=== PATIENT | female | born 1945 | race Caucasian/White ===

== ENCOUNTER 2016-07-21 22:38 | Emergency (ER) | payer MEDICARE, OTHER ==
[~2016-07-21] VITALS: Ht 172.7 cm; Wt 70.0 kg
[2016-07-21 22:44] VITALS: BP 148/96; PULSE 110; RESP 28; O2SAT 98
--- NOTE | 2016-07-21 23:26 | ED.REPORT ---
HPI-General Illness Date of Service Jul 21, 2016 ED Provider: Lino Byrd MD Patient is a 71 year old female with a history of asthma and recent diagnosis of pneumonia who presents to the ED complaining of cough and shortness of breath for the past 12 days, increasing in severity tonight. Patient states that she was seen at [facility] after onset of symptoms and was diagnosed with pneumonia. She was started on Azithromycin for 5x days and Prednisone. However the patient's symptoms did not resolve and she presented to the [facility] again today. She was given another course of Prednisone and started on Amoxicillin, Guaifenesin, and Flovent. The patient reports being anxious and jittery due to the Prednisone. She reports waking from sleep panicking and she is unable to sleep well. The patient also has albuterol at home, but was told not to use this medication while treated for pneumonia. Patient denies fever, chest pain, or swelling in her legs. Nursing Notes Stated Complaint: SHORTNESS OF BREATH Chief Complaint: Respiratory Distress Nursing Notes Reviewed: Yes Allergies: Uncoded Allergies: SEASONAL (Allergy, Mild, 07/21/16) Scheduled PRN Lorazepam (Lorazepam) 0.5 Mg Tablet 0.5 MG PO HS PRN PRN For Insomnia General Time Seen by MD: 23:25 Chief Complaint Breathing problem, Cough Hx Obtained From: Patient Arrived By: Walk-in Sudden in Onset?: No Onset Occurred: More than a week ago... 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 Physical Exam Vital Signs Vital Signs Date Time Temp Pulse Resp B/P Pulse Ox O2 Delivery O2 Flow Rate FiO2 07/22/16 02:26 110 16 122/70 100 Room Air 1/18/17 00:10 94 20 147/78 98 Room Air 07/22/16 00:05 92 16 94 Room Air 07/21/16 22:44 35.8 110 28 148/96 98 Room Air Initial VS: Reviewed Skin: Warm, Dry, No cyanosis Neurologic: Alert, Oriented, Nonfocal General/Constitutional: Awake, Alert Behavior: Positive: Anxious (nearly tremulous with anxiety) Head / Eyes: Atraumatic, Normocephalic, PERRL ENT: Airway patent, Mucous membranes moist Neck: Supple, Full range of motion Respiratory / Chest: No respiratory distress, No rales, No rhonchi Wheezing / Retractions: Positive: Wheeze insp/exp diffuse Cardiovascular: Regular rhythm, No murmurs Heart Rate / Rhythm: Positive: Tachycardia Abdomen: Soft, Non-tender, No guarding, No rebound Upper Extremities Upper Extremity / MS: No swelling, No edema Lower Extremity / Pelvis / MS: No swelling, No edema Psychiatric: Cognitive function NL Abnormal Mood/Affect: Positive: Anxious Interpretation & Diagnostics Interpretation & Diagnostics: NEGATIVE FOR INFLUENZA TYPE A AND B Lab Results Interpretation Result Diagram: 07/21/16 2345 07/21/16 2345 Test 07/21/16 23:45 White Blood Count 7.2th/mm3 (3.8-10.1) Red Blood Count 4.91mil/mm3 (3.90-5.20) Hemoglobin 13.2g/dL (12.0-15.6) Hematocrit 37.0% (35.0-46.0) Mean Corpuscular Volume 75.4fL (81-100) Mean Corpuscular Hemoglobin 26.9pg (27.0-35.0) Mean Corpuscular Hemoglobin Concent 35.7% (32.0-37.0) Red Cell Distribution Width 13.4% (12.3-15.4) Platelet Count 490bil/L (150-400) Neutrophils (%) (Auto) 81.0% (40-74) Lymphocytes (%) (Auto) 17.1% (14-46) Monocytes (%) (Auto) 1.5% (4-12) Eosinophils (%) (Auto) 0% (0-5) Basophils (%) (Auto) 0.1% (0-3) Prothrombin Time 10.6sec (8.1-12.5) Prothromb Time International Ratio 0.99ratio Activated Partial Thromboplast Time 29.8sec (22.8-33.0) Sodium Level 126mEq/L (134-144) Potassium Level 4.2mEq/L (3.5-5.2) Chloride Level 91mEq/L (97-108) Carbon Dioxide Level 17mmol/L (18-29) Blood Urea Nitrogen 12mg/dL (8-27) Creatinine 0.66mg/dL (0.57-1.00) Estimat Glomerular Filtration Rate 127mL/min (>59) Glucose Level 171mg/dL (60-99) Calcium Level 9.8mg/dL (8.5-10.1) Magnesium Level 2.0mg/dL (1.6-2.6) Total Bilirubin 0.3mg/dL (0.0-1.2) Aspartate Amino Transf (AST/SGOT) 19U/L (0-50) Alanine Aminotransferase (ALT/SGPT) 16U/L (0-32) Alkaline Phosphatase 105U/L (25-165) Troponin T 0.010ug/L (0.0-0.011) Pro-B-Type Natriuretic Peptide 111.0pg/mL (0-301) Total Protein 8.2g/dL (6.4-8.4) Albumin 4.1g/dL (3.4-5.0) Hold Arredondo Top Tube Received (Received) ECG Interpretation ECG Interpretation: Sinus tachycardia, Rate 113 RBBB and LAFB Time: 00:49 Interpreted by: ED physician Re-Eval/Medical Decision Med Decision/Clinical Course 71-year-old female with asthma by history, recent respiratory infection, presents quite anxious and paranoid after starting a second course of steroids in the course of her current illness. Currently not using her albuterol direction of her doctor. Her exam and evaluation here or unremarkable. X-ray was not repeated as it was done earlier today at [facility]. She appears to just be having steroid-induced anxiety. I have asked her to stop her steroids at this point, continue her inhaled fluticasone, and we will return her to albuterol with spacer. She is discharged in stable and improved condition after nebulizers and a small dose of Ativan here. Source of Hx: Old records Time of Eval: 02:11 Patient Status: Condition improved Re-Evaluation/Progress Note: Patient feels much improved after breathing treatment. Discussed results of labs, EKG, and influenza screen. Patient understands and agrees with the plan to be discharged home. Discharge instructions and follow-up discussed. All questions were addressed. Return to the ED warnings given. Counseled Regarding: Diagnosis, Lab results, Need for follow-up, When/why to return to ED Discharge & Departure Primary Impression: Reactive airway disease that is not asthma Additional Impressions: Anxiety Steroid-induced psychosis Disposition: Home Discharge Condition All VS Reviewed: Yes Condition: Stable Patient Instructions: How to Use a Metered-dose Inhaler (ED), Reactive Airways Disease (ED) Additional Instructions: Use a spacer with her albuterol puffer. Continue your albuterol two puffs every four hours. Continue your fluticasone. Stop the methylprednisolone. Sparing use of Ativan if needed for sleep or anxiety. Maximum of three doses and a given day. Return if any immediate issues. Follow-up with your doctor in the office. Referrals: Mack Salomon MD (PCP) [facility] Attestation Portions of this note were transcribed by Sharyn Grullon. I, Dr. Byrd personally performed the history, physical exam and medical decision-making; I reviewed and confirmed the accuracy of the information in the transcribed note. Signed by: Debbie Canas, 07/22/2016 0219 copies to: Mack Salomon MD, Christopher W MD Jul 21, 2016 23:26 Sharyn Grullon Jul 21, 2016 23:36
[2016-07-21] MEDS ORDERED: Albuterol 2.5 mg/3 mL Inhalation Solution NEB ONE (23:40)
[2016-07-21] MEDS ORDERED: Albuterol-Ipratropium 3 mL Inhalation Solution NEB ONE (23:40)
[2016-07-22 00:01] LABS: Mean Corpuscular Volume 75.4 fL (81-100)
[2016-07-22 00:02] LABS: BASOPHILS % (AUTO) 0.1 % (0-3); EOSINOPHILS % (AUTO) 0 % (0-5); MONOCYTES % (AUTO) 1.5 % (4-12); Mean Corpuscular Hemoglobin 26.9 pg (27.0-35.0); Platelet Count 490 bil/L (150-400)
[2016-07-22 00:05] VITALS: PULSE 92; RESP 16; O2SAT 94
[2016-07-22 00:10] VITALS: BP 147/78; PULSE 94; RESP 20; O2SAT 98
[2016-07-22 00:17] LABS: INR 0.99 ratio
[2016-07-22 00:24] LABS: TROPONIN T 0.01 ug/L (0.0-0.011)
[2016-07-22] MEDS ORDERED: LORA0.5T PO (02:14)
[2016-07-22 02:26] VITALS: BP 122/70; PULSE 110; RESP 16; O2SAT 100
== END 2016-07-22 02:42 | disposition home or self-care (01) ==
LOC: SED 22:38
DX: J98.8 Other specified respiratory disorders (principal); F41.9 Anxiety disorder, unspecified; F19.159 Other psychoactive substance abuse with psychoactive substance-induced psychotic disorder, unspecified; J45.909 Unspecified asthma, uncomplicated; Z87.01 Personal history of pneumonia (recurrent)
CPT/HCPCS: 36415; 80053; 82308; 83735; 83880; 84484; 85025; 85610; 85730; 87804; 93005; 94640; 96374; 99285; J2060; J7613; J7620